=== PATIENT | female | born 1985 | race African-American/Black ===

== ENCOUNTER 2018-08-17 10:19 | Emergency (ER) | payer MEDICAID ==
[~2018-08-17] VITALS: Ht 162.6 cm; Wt 50.0 kg
[2018-08-17] MEDS ORDERED: IBUPROFEN 800MG TABLET PO ONE (11:00)
[2018-08-17 13:34] VITALS: BP 115/78
== END 2018-08-17 13:37 | disposition home or self-care (01) ==
LOC: ER 10:45
DX: M25.512 Pain in left shoulder (principal); M54.5 Low back pain; M54.2 Cervicalgia; V49.49XA Driver injured in collision with other motor vehicles in traffic accident, initial encounter; Y93.89 Activity, other specified; Y92.89 Other specified places as the place of occurrence of the external cause
CPT/HCPCS: 72050; 73030; 81025; 99284